=== PATIENT | female | born 1995 | race American Indian/Alaskan Native ===

== ENCOUNTER 2017-08-20 22:43 | Emergency (ER) | payer SELFPAY ==
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
[2017-08-21 03:27] VITALS: BP 119/67
== END 2017-08-21 03:27 | disposition home or self-care (01) ==
LOC: ED 22:43
DX: S29.012A Strain of muscle and tendon of back wall of thorax, initial encounter (principal); S46.811A Strain of other muscles, fascia and tendons at shoulder and upper arm level, right arm, initial encounter; G43.009 Migraine without aura, not intractable, without status migrainosus; J45.909 Unspecified asthma, uncomplicated; D64.9 Anemia, unspecified; V89.2XXA Person injured in unspecified motor-vehicle accident, traffic, initial encounter; Y93.89 Activity, other specified; Y99.8 Other external cause status; Y92.488 Other paved roadways as the place of occurrence of the external cause
CPT/HCPCS: 99282